=== PATIENT | male | born 1950 ===

== ENCOUNTER 2021-07-19 07:26 | Outpatient (CLI) | payer OTHER | END 2021-07-19 07:39 | disposition home or self-care (01) | LOC: EDBD 07:26 → TOM 07:26 | PROVIDERS: ATTEND Internal Medicine | DX: G30.8 Other Alzheimer's disease (principal); J44.1 Chronic obstructive pulmonary disease with (acute) exacerbation; J45.51 Severe persistent asthma with (acute) exacerbation | CPT/HCPCS: 70551 ==

== ENCOUNTER 2022-10-23 11:50 | Outpatient (CLI) | payer OTHER | END 2022-10-23 11:51 | disposition home or self-care (01) | LOC: MRI 11:50 | PROVIDERS: ATTEND Orthopaedic Surgery | DX: M54.31 Sciatica, right side (principal) | CPT/HCPCS: 72148 ==